=== PATIENT | male | born 1965 | race Caucasian/White ===

== ENCOUNTER 2017-08-18 17:19 | Emergency (ER) | payer BC ==
[2017-08-18 19:11] VITALS: BP 166/87
--- NOTE | 2017-08-18 20:18 | UC ---
Skin Complaint HPI - HPI Summary HPI Summary: 51 year old male with no significant pmhx here with swelling and redness of his right face. He noticed pimple over the his cheek, and he tried to pop it. He reports he noticed bump over the area, prompting him to come here. Denies any fever, chills, change in vision, dental pain or any other complaints. - History of Current Complaint Chief Complaint: UCSkin Time Seen by Provider: 08/18/17 19:30 Stated Complaint: SOFT TISSUE COMPLAINT Hx Obtained From: Patient Onset/Duration: Gradual Onset Skin Exposure Onset/Duration: Days Ago Timing: Constant Aggravating Factor(s): Touch Alleviating Factor(s): Nothing - Allergy/Home Medications Allergies/Adverse Reactions: Allergies Allergy/AdvReac Type Severity Reaction Status Date / Time No Known Allergies Allergy Verified 08/18/17 19:11 Review of Systems Constitutional: Negative Skin: Negative Eyes: Negative ENT: Negative Respiratory: Negative Cardiovascular: Negative Gastrointestinal: Negative Genitourinary: Negative Motor: Negative Neurovascular: Negative Musculoskeletal: Negative Neurological: Negative Psychological: Negative All Other Systems Reviewed And Are Negative: Yes PMH/Surg Hx/FS Hx/Imm Hx Previously Healthy: Yes - Surgical History Surgical History: Yes Surgery Procedure, Year, and Place: APPENDIX. (?)RT KNEE ARTHROSCOPY. WISDOM TEETH - Social History Alcohol Use: Occasionally Alcohol Amount: 1 BEER PER WEEK Substance Use Type: None Smoking Status (MU): Never Smoked Tobacco Physical Exam Triage Information Reviewed: Yes Appearance: Well-Appearing, No Pain Distress Vital Signs: Initial Vital Signs Temp 35.7 C 08/18/17 19:08 Pulse 101 08/18/17 19:08 Resp 16 08/18/17 19:08 BP 166/87 08/18/17 19:08 Pulse Ox 100 08/18/17 19:08 Eye Exam: Normal ENT Exam: Normal Dental Exam: Normal Neck exam: Normal Neck: Positive: Supple Respiratory Exam: Normal Cardiovascular Exam: Normal Abdominal Exam: Normal Musculoskeletal Exam: Normal Neurological Exam: Normal Psychological Exam: Normal Skin Exam: Normal Skin: Positive: Other - right sided facial induration with non-fluctuant lesion. warm to touch Central black head Course/Dx - Course Course Of Treatment: Abx and NSAID. Outpatient follow up - Differential Diagnoses - Skin Complaint Differential Diagnoses: Cellulitis - Diagnoses Provider Diagnoses: Cellulitis Discharge - Discharge Plan Condition: Good Disposition: HOME Prescriptions: Ibuprofen [Ibuprofen 200 MG] 200 mg PO Q4HR PRN #30 cap PRN Reason: Pain Sulfamethox/Trimethoprim DS* [Bactrim DS 800/160 TAB*] 1 tab PO BID 10 Days #20 tab Referrals: Thom Hardwick MD [Primary Care Provider] -
[2017-08-18] MEDS ORDERED: Sulfamethox/Trimethoprim DS 800/160* TAB PO ONE (20:19)
== END 2017-08-18 20:39 | disposition home or self-care (01) ==
LOC: UCEAST 17:19
DX: L03.211 Cellulitis of face (principal); Z72.89 Other problems related to lifestyle
CPT/HCPCS: 99212; A9270-GY; G0463